=== PATIENT | male | born 1940 | race Caucasian/White ===

== ENCOUNTER 2019-05-23 13:15 | Inpatient (IN) | payer OTHER, MEDICAID ==
[~2019-05-23] VITALS: Ht 167.6 cm; Wt 56.2 kg
[2019-05-23 13:20] VITALS: BP_SYST 91
[2019-05-23] MEDS ORDERED: NACL 0.9% 1,000 ML IV ONE ×2 (14:00→15:15)
[2019-05-23] MEDS ORDERED: IPRATROPIUM/ALBUTEROL SULFATE 3 ML AMPUL.NEB (DUONEB) INH ONE (14:00)
[2019-05-23 14:38] LABS: BASOPHILS # (AUTO) 0.1 K/uL (0.0-0.2); BASOPHILS % (AUTO) 0.5 % (0.0-2.0); EOSINOPHILS % (AUTO) 0.1 % (0.0-4.0); HEMATOCRIT 36.1 % (36-54); LYMPHOCYTES # (AUTO) 0.8 K/uL (1.0-5.5); LYMPHOCYTES % (AUTO) 4.3 % (20.5-51.5); MEAN CORPUSCULAR HEMOGLOBIN 32 pg (27-31); MEAN CORPUSCULAR HGB CONC 33 % (32-36); MEAN CORPUSCULAR VOLUME 96 fL (79.0-98.0); MONOCYTES # (AUTO) 1.5 K/uL (0.0-1.0); NEUTROPHILS # (AUTO) 16.3 K/uL (1.8-7.7); NEUTROPHILS % (AUTO) 87.1 % (40.0-70.0); PLATELET COUNT (AUTO) 137 K/uL (130-430); RED BLOOD CELL COUNT(AUTO) 3.76 MIL/uL (4.2-6.2); RED CELL DISTRIBUTION WIDTH 15.6 % (9.0-15.0); WHITE BLOOD COUNT (AUTO) 18.8 K/uL (4.8-10.8)
[2019-05-23] MEDS ORDERED: LEVOFLOXACIN 500 MG/D5W 100 ML IV ONE (14:45)
[2019-05-23 14:49] LABS: CHLORIDE 108 mmol/L (98-107)
[2019-05-23 14:54] LABS: ANION GAP 8 (5-15); CALCIUM 8.1 mg/dL (8.4-11.0); CREATININE 1.12 mg/dL (0.55-1.30); GLUCOSE 142 mg/dL (70-99); SODIUM SERUM 139 mmol/L (136-145); UREA NITROGEN, BLOOD 45 mg/dL (8-21)
[2019-05-23 14:59] LABS: ALANINE AMINOTRANSFERASE 21 U/L (12-78); ALBUMIN 1.5 g/dL (3.4-4.8); ASPARTATE AMINOTRANSFERASE 53 U/L (10-37); TOTAL BILIRUBIN 0.5 mg/dL (0.0-1.0)
[2019-05-23 15:01] LABS: BILIRUBIN,URINE NEGATIVE (NEGATIVE); CLARITY/URINE TURBID (CLEAR); COLOR,URINE YELLOW (YELLOW); GLUCOSE,URINE NEGATIVE (NEGATIVE); KETONES,URINE NEGATIVE (NEGATIVE); LEUKOCYTE ESTERASE ,URINE 3+ (NEGATIVE); NITRITE, URINE NEGATIVE (NEGATIVE); PH,URINE 5.5 (5.0-8.0); PROTEIN URINE NEGATIVE (NEGATIVE)
[2019-05-23 15:02] LABS: BLOOD, URINE TRACE (NEGATIVE)
[2019-05-23 15:21] LABS: BACTERIA,URINE MANY /HPF (None Seen); WBC,URINE 50-80 /HPF (0-3)
[2019-05-23] MEDS ORDERED: PHEN100C4 PO (16:32)
[2019-05-23] MEDS ORDERED: HYDR-4272 PO (16:32)
[2019-05-23] MEDS ORDERED: SENN17.24 PO (16:32)
[2019-05-23] MEDS ORDERED: MOM PO (16:32)
[2019-05-23] MEDS ORDERED: FLEETMO RC (16:33)
[2019-05-23] MEDS ORDERED: ACET325C3 PO (16:38)
[2019-05-23] MEDS ORDERED: SPIR25TA6 PO (16:38)
[2019-05-23] MEDS ORDERED: TAMS-11 PO (16:38)
[2019-05-23] MEDS ORDERED: FURO-150 PO (16:38)
[2019-05-23] MEDS ORDERED: ASPI-1155 PO (16:38)
[2019-05-23] MEDS ORDERED: MEMA5TAB PO (16:44)
[2019-05-23] MEDS ORDERED: GABA-531 PO (16:44)
[2019-05-23] MEDS ORDERED: FINA5TAB3 PO (16:44)
[2019-05-23] MEDS ORDERED: MEGE40TA PO (16:44)
[2019-05-23] MEDS ORDERED: VALP250S4 PO (16:51)
[2019-05-23 17:15] VITALS: BP_SYST 135
[2019-05-23] MEDS ORDERED: MINERAL OIL 133 ML ENEMA RC PRN (17:30)
[2019-05-23] MEDS ORDERED: LORazepam 2 MG/ML VIAL IVP PRN (17:30)
[2019-05-23] MEDS ORDERED: ONDANSETRON HCL 4 MG/2 ML VIAL IVP PRN (17:30)
[2019-05-23] MEDS ORDERED: HYDROcodone/ACETAMIN 10-325 MG TAB PO PRN (17:30)
[2019-05-23] MEDS ORDERED: HYDROcodone/ACETAMIN 5-325 MG TAB (NORCO/ VICODIN) PO PRN (17:30)
[2019-05-23] MEDS: D5/0.45 NS 1,000 ML IV SCH (20:54)
[2019-05-23] MEDS: PHENYTOIN 100 MG CAPSULE PO SCH ×2 (20:55→21:00)
[2019-05-23] MEDS: NORMAL SALINE 5 ML DISP.SYRIN IVF SCH (20:55)
[2019-05-23] MEDS: SENNOSIDES 8.6 MG TABLET PO SCH ×2 (20:55→21:00)
[2019-05-23] MEDS ORDERED: VALPROATE SODIUM PO SCH (21:00)
[2019-05-23] MEDS ORDERED: MEGESTROL ACETATE 40 MG TABLET PO SCH (22:30)
[2019-05-23] MEDS ORDERED: VALPROIC ACID ORAL SYRUP 250 MG/5 ML UDC PO SCH (23:00)
[2019-05-23] MEDS ORDERED: VALPROIC ACID 250 MG CAPSULE (DEPAKENE) PO SCH (23:00)
[2019-05-24 01:14] VITALS: BP_SYST 96
[2019-05-24] MEDS: MEGESTROL ACETATE 40 MG TABLET PO SCH ×3 (05:37→18:08)
[2019-05-24] MEDS: D5/0.45 NS 1,000 ML IV SCH ×2 (05:41→16:40)
[2019-05-24] MEDS: NORMAL SALINE 5 ML DISP.SYRIN IVF SCH ×3 (05:41→23:22)
[2019-05-24 08:24] VITALS: BP_SYST 111
[2019-05-24] MEDS: PHENYTOIN 100 MG CAPSULE PO SCH ×2 (09:00→21:00)
[2019-05-24] MEDS: ACETAMINOPHEN 325 MG TABLET PO SCH (09:00)
[2019-05-24] MEDS: FUROSEMIDE 20 MG TABLET PO SCH (09:00)
[2019-05-24] MEDS: VALPROIC ACID ORAL SYRUP 250 MG/5 ML UDC PO SCH ×2 (09:00→21:00)
[2019-05-24] MEDS: GABAPENTIN 300 MG CAPSULE PO SCH (09:00)
[2019-05-24] MEDS: TAMSULOSIN HCL 0.4 MG CAP PO SCH (09:00)
[2019-05-24] MEDS ORDERED: VALPROIC ACID 250 MG CAPSULE (DEPAKENE) PO SCH (09:00)
[2019-05-24] MEDS: FINASTERIDE 5 MG TABLET (PROSCAR) PO SCH (09:00)
[2019-05-24] MEDS: MILK OF MAGNESIA 30 ML UDC PO SCH (09:00)
[2019-05-24] MEDS: SPIRONOLACTONE 25 MG TABLET (ALDACTONE) PO SCH (09:00)
[2019-05-24] MEDS: MEMANTINE HCL 5 MG TABLET PO SCH (09:00)
[2019-05-24] MEDS: ASPIRIN 81 MG TAB.CHEW PO SCH (09:00)
[2019-05-24 09:17] LABS: BASOPHILS # (AUTO) 0.1 K/uL (0.0-0.2); BASOPHILS % (AUTO) 0.4 % (0.0-2.0); EOSINOPHILS # (AUTO) 0.2 K/uL (0.0-0.4); EOSINOPHILS % (AUTO) 1.1 % (0.0-4.0); HEMATOCRIT 26.3 % (36-54); HEMOGLOBIN 8.9 g/dL (14.0-18.0); LYMPHOCYTES # (AUTO) 0.7 K/uL (1.0-5.5); LYMPHOCYTES % (AUTO) 3.9 % (20.5-51.5); MEAN CORPUSCULAR HEMOGLOBIN 33 pg (27-31); MEAN CORPUSCULAR HGB CONC 34 % (32-36); MEAN CORPUSCULAR VOLUME 97 fL (79.0-98.0); MONOCYTES # (AUTO) 1.2 K/uL (0.0-1.0); MONOCYTES % (AUTO) 6.9 % (1.7-9.3); NEUTROPHILS # (AUTO) 15.1 K/uL (1.8-7.7); NEUTROPHILS % (AUTO) 87.7 % (40.0-70.0); PLATELET COUNT (AUTO) 150 K/uL (130-430); RED BLOOD CELL COUNT(AUTO) 2.71 MIL/uL (4.2-6.2); RED CELL DISTRIBUTION WIDTH 15.6 % (9.0-15.0); WHITE BLOOD COUNT (AUTO) 17.3 K/uL (4.8-10.8)
[2019-05-24 09:26] LABS: ANION GAP 5 (5-15); CALCIUM 7.3 mg/dL (8.4-11.0); CHLORIDE 112 mmol/L (98-107); CREATININE 0.86 mg/dL (0.55-1.30); GLUCOSE 178 mg/dL (70-99); POTASSIUM 3.1 mmol/L (3.5-5.1); SODIUM SERUM 142 mmol/L (136-145); UREA NITROGEN, BLOOD 31 mg/dL (8-21)
[2019-05-24 13:08] VITALS: BP_SYST 138
[2019-05-24] MEDS ORDERED: BALSAM PERU/CASTOR OIL 60 GM OINT...G. TP ONE (16:45)
[2019-05-24] MEDS ORDERED: LEVOFLOXACIN 500 MG/D5W 100 ML IV SCH (17:00)
[2019-05-24 17:14] VITALS: BP_SYST 149
[2019-05-24 20:00] VITALS: BP_SYST 147
[2019-05-24] MEDS: SENNOSIDES 8.6 MG TABLET PO SCH (21:00)
[2019-05-24] MEDS: AZTREONAM 1 GM in NS 50 ML IV SCH (23:21)
[2019-05-25] MEDS: AZTREONAM 1 GM in NS 50 ML IV SCH ×3 (05:44→23:19)
[2019-05-25] MEDS: D5/0.45 NS 1,000 ML IV SCH ×2 (05:45→17:44)
[2019-05-25] MEDS: MEGESTROL ACETATE 40 MG TABLET PO SCH ×4 (05:45→17:44)
[2019-05-25] MEDS: NORMAL SALINE 5 ML DISP.SYRIN IVF SCH ×3 (05:50→23:25)
[2019-05-25 07:35] VITALS: BP_SYST 97
[2019-05-25 08:00] VITALS: BP_SYST 97
[2019-05-25 08:03] LABS: BASOPHILS # (AUTO) 0.1 K/uL (0.0-0.2); BASOPHILS % (AUTO) 0.3 % (0.0-2.0); EOSINOPHILS # (AUTO) 0.1 K/uL (0.0-0.4); EOSINOPHILS % (AUTO) 0.3 % (0.0-4.0); HEMATOCRIT 31.8 % (36-54); HEMOGLOBIN 10.6 g/dL (14.0-18.0); LYMPHOCYTES # (AUTO) 0.8 K/uL (1.0-5.5); LYMPHOCYTES % (AUTO) 4.7 % (20.5-51.5); MEAN CORPUSCULAR HEMOGLOBIN 32 pg (27-31); MEAN CORPUSCULAR HGB CONC 33 % (32-36); MEAN CORPUSCULAR VOLUME 97 fL (79.0-98.0); MONOCYTES # (AUTO) 1.3 K/uL (0.0-1.0); MONOCYTES % (AUTO) 7.3 % (1.7-9.3); NEUTROPHILS # (AUTO) 15.4 K/uL (1.8-7.7); NEUTROPHILS % (AUTO) 87.4 % (40.0-70.0); PLATELET COUNT (AUTO) 162 K/uL (130-430); RED BLOOD CELL COUNT(AUTO) 3.28 MIL/uL (4.2-6.2); RED CELL DISTRIBUTION WIDTH 15.6 % (9.0-15.0); WHITE BLOOD COUNT (AUTO) 17.6 K/uL (4.8-10.8)
[2019-05-25 08:16] LABS: ALANINE AMINOTRANSFERASE 19 U/L (12-78); ALBUMIN 1.2 g/dL (3.4-4.8); ANION GAP 7 (5-15); ASPARTATE AMINOTRANSFERASE 45 U/L (10-37); CALCIUM 7.8 mg/dL (8.4-11.0); CHLORIDE 111 mmol/L (98-107); GLUCOSE 139 mg/dL (70-99); POTASSIUM 3.1 mmol/L (3.5-5.1); SODIUM SERUM 141 mmol/L (136-145); TOTAL BILIRUBIN 0.4 mg/dL (0.0-1.0); UREA NITROGEN, BLOOD 23 mg/dL (8-21)
[2019-05-25 08:24] LABS: C-REACTIVE PROTEIN QUANT 36.1 mg/dL (0-0.5)
[2019-05-25] MEDS: ACETAMINOPHEN 325 MG TABLET PO SCH (09:00)
[2019-05-25] MEDS: GABAPENTIN 300 MG CAPSULE PO SCH (09:36)
[2019-05-25] MEDS: TAMSULOSIN HCL 0.4 MG CAP PO SCH (09:36)
[2019-05-25] MEDS: MEMANTINE HCL 5 MG TABLET PO SCH (09:37)
[2019-05-25] MEDS: ASPIRIN 81 MG TAB.CHEW PO SCH (09:37)
[2019-05-25] MEDS: FUROSEMIDE 20 MG TABLET PO SCH (09:37)
[2019-05-25] MEDS: PHENYTOIN 100 MG CAPSULE PO SCH ×2 (09:38→23:22)
[2019-05-25] MEDS: VALPROIC ACID ORAL SYRUP 250 MG/5 ML UDC PO SCH ×2 (09:38→21:00)
[2019-05-25] MEDS: FINASTERIDE 5 MG TABLET (PROSCAR) PO SCH (09:38)
[2019-05-25] MEDS: MILK OF MAGNESIA 30 ML UDC PO SCH (09:43)
[2019-05-25] MEDS: SPIRONOLACTONE 25 MG TABLET (ALDACTONE) PO SCH (09:44)
[2019-05-25] MEDS: BALSAM PERU/CASTOR OIL 60 GM OINT...G. TP SCH (09:45)
[2019-05-25 10:05] LABS: ERYTHROCYTE SEDIMENTATION RATE 102 MM/HR (0-15)
[2019-05-25 12:00] VITALS: BP_SYST 98
[2019-05-25] MEDS ORDERED: POTASSIUM CHLORIDE 20 MEQ TAB.PRT.SR PO ONE (14:15)
[2019-05-25] MEDS: SENNOSIDES 8.6 MG TABLET PO SCH (21:00)
[2019-05-25] MEDS: MUPIROCIN 2% TOPICAL OINTMENT 22 GM NS SCH (21:00)
[2019-05-26] MEDS: MEGESTROL ACETATE 40 MG TABLET PO SCH ×4 (00:30→17:03)
[2019-05-26 00:32] VITALS: BP_SYST 114
[2019-05-26] MEDS: D5/0.45 NS 1,000 ML IV SCH ×3 (05:42→17:03)
[2019-05-26] MEDS: AZTREONAM 1 GM in NS 50 ML IV SCH ×3 (05:43→22:26)
[2019-05-26] MEDS: NORMAL SALINE 5 ML DISP.SYRIN IVF SCH ×3 (05:43→22:26)
[2019-05-26 07:23] LABS: BASOPHILS % (AUTO) 0.4 % (0.0-2.0); EOSINOPHILS # (AUTO) 0.2 K/uL (0.0-0.4); EOSINOPHILS % (AUTO) 1.3 % (0.0-4.0); HEMATOCRIT 29.4 % (36-54); LYMPHOCYTES # (AUTO) 0.6 K/uL (1.0-5.5); LYMPHOCYTES % (AUTO) 5.7 % (20.5-51.5); MEAN CORPUSCULAR HEMOGLOBIN 33 pg (27-31); MEAN CORPUSCULAR HGB CONC 34 % (32-36); MEAN CORPUSCULAR VOLUME 97 fL (79.0-98.0); MONOCYTES # (AUTO) 1.2 K/uL (0.0-1.0); MONOCYTES % (AUTO) 10.4 % (1.7-9.3); NEUTROPHILS # (AUTO) 9.2 K/uL (1.8-7.7); NEUTROPHILS % (AUTO) 82.2 % (40.0-70.0); PLATELET COUNT (AUTO) 173 K/uL (130-430); RED BLOOD CELL COUNT(AUTO) 3.04 MIL/uL (4.2-6.2); RED CELL DISTRIBUTION WIDTH 15.6 % (9.0-15.0); WHITE BLOOD COUNT (AUTO) 11.2 K/uL (4.8-10.8)
[2019-05-26 07:36] LABS: ANION GAP 5 (5-15); CALCIUM 7.6 mg/dL (8.4-11.0); CHLORIDE 113 mmol/L (98-107); CREATININE 0.69 mg/dL (0.55-1.30); GLUCOSE 111 mg/dL (70-99); POTASSIUM 3.4 mmol/L (3.5-5.1); SODIUM SERUM 139 mmol/L (136-145); UREA NITROGEN, BLOOD 17 mg/dL (8-21)
[2019-05-26 08:00] VITALS: BP_SYST 106
[2019-05-26 08:22] LABS: C-REACTIVE PROTEIN QUANT 26.3 mg/dL (0-0.5)
[2019-05-26] MEDS: ACETAMINOPHEN 325 MG TABLET PO SCH ×2 (09:00→09:42)
[2019-05-26] MEDS: GABAPENTIN 300 MG CAPSULE PO SCH ×2 (09:00→09:44)
[2019-05-26] MEDS: MILK OF MAGNESIA 30 ML UDC PO SCH ×2 (09:00→09:59)
[2019-05-26] MEDS: FUROSEMIDE 20 MG TABLET PO SCH ×2 (09:00→09:46)
[2019-05-26] MEDS: PHENYTOIN 100 MG CAPSULE PO SCH ×3 (09:00→21:21)
[2019-05-26] MEDS: SPIRONOLACTONE 25 MG TABLET (ALDACTONE) PO SCH ×2 (09:00→09:46)
[2019-05-26] MEDS: MEMANTINE HCL 5 MG TABLET PO SCH ×2 (09:00→09:44)
[2019-05-26] MEDS: TAMSULOSIN HCL 0.4 MG CAP PO SCH ×2 (09:00→09:45)
[2019-05-26] MEDS: VALPROIC ACID ORAL SYRUP 250 MG/5 ML UDC PO SCH ×3 (09:00→21:20)
[2019-05-26] MEDS: FINASTERIDE 5 MG TABLET (PROSCAR) PO SCH ×2 (09:00→09:45)
[2019-05-26 09:44] LABS: ERYTHROCYTE SEDIMENTATION RATE 108 MM/HR (0-15)
[2019-05-26] MEDS: ASPIRIN 81 MG TAB.CHEW PO SCH ×2 (09:45→10:14)
[2019-05-26] MEDS: MUPIROCIN 2% TOPICAL OINTMENT 22 GM NS SCH ×2 (09:45→21:21)
[2019-05-26] MEDS: BALSAM PERU/CASTOR OIL 60 GM OINT...G. TP SCH (09:50)
[2019-05-26] MEDS ORDERED: POTASSIUM CHLORIDE 20 MEQ TAB.PRT.SR PO ONE (12:00)
[2019-05-26 12:03] VITALS: BP_SYST 157
[2019-05-26 17:14] VITALS: BP_SYST 155
[2019-05-26 20:00] VITALS: BP_SYST 138
[2019-05-26] MEDS: SENNOSIDES 8.6 MG TABLET PO SCH (21:21)
[2019-05-27] MEDS: MEGESTROL ACETATE 40 MG TABLET PO SCH ×3 (00:28→11:19)
[2019-05-27 00:30] VITALS: BP_SYST 95
[2019-05-27] MEDS: D5/0.45 NS 1,000 ML IV SCH ×2 (05:03→13:23)
[2019-05-27] MEDS: AZTREONAM 1 GM in NS 50 ML IV SCH ×2 (05:07→13:23)
[2019-05-27] MEDS: NORMAL SALINE 5 ML DISP.SYRIN IVF SCH ×2 (05:10→13:23)
[2019-05-27 07:12] LABS: BASOPHILS # (AUTO) 0.1 K/uL (0.0-0.2); BASOPHILS % (AUTO) 0.7 % (0.0-2.0); EOSINOPHILS # (AUTO) 0.2 K/uL (0.0-0.4); EOSINOPHILS % (AUTO) 1.8 % (0.0-4.0); HEMATOCRIT 28.4 % (36-54); HEMOGLOBIN 9.7 g/dL (14.0-18.0); LYMPHOCYTES # (AUTO) 0.6 K/uL (1.0-5.5); LYMPHOCYTES % (AUTO) 7.4 % (20.5-51.5); MEAN CORPUSCULAR HEMOGLOBIN 33 pg (27-31); MEAN CORPUSCULAR HGB CONC 34 % (32-36); MEAN CORPUSCULAR VOLUME 97 fL (79.0-98.0); MONOCYTES # (AUTO) 1.1 K/uL (0.0-1.0); MONOCYTES % (AUTO) 12.7 % (1.7-9.3); NEUTROPHILS # (AUTO) 6.5 K/uL (1.8-7.7); NEUTROPHILS % (AUTO) 77.4 % (40.0-70.0); PLATELET COUNT (AUTO) 192 K/uL (130-430); RED BLOOD CELL COUNT(AUTO) 2.93 MIL/uL (4.2-6.2); RED CELL DISTRIBUTION WIDTH 15.5 % (9.0-15.0); WHITE BLOOD COUNT (AUTO) 8.4 K/uL (4.8-10.8)
[2019-05-27 07:42] LABS: ANION GAP 5 (5-15); CALCIUM 7.3 mg/dL (8.4-11.0); CHLORIDE 111 mmol/L (98-107); CREATININE 0.58 mg/dL (0.55-1.30); GLUCOSE 122 mg/dL (70-99); POTASSIUM 3.9 mmol/L (3.5-5.1); SODIUM SERUM 137 mmol/L (136-145); UREA NITROGEN, BLOOD 14 mg/dL (8-21)
[2019-05-27 08:28] VITALS: BP_SYST 130
[2019-05-27 09:05] LABS: C-REACTIVE PROTEIN QUANT 19.9 mg/dL (0-0.5)
[2019-05-27 09:29] LABS: ERYTHROCYTE SEDIMENTATION RATE 95 MM/HR (0-15)
[2019-05-27] MEDS: MUPIROCIN 2% TOPICAL OINTMENT 22 GM NS SCH (09:46)
[2019-05-27] MEDS: MILK OF MAGNESIA 30 ML UDC PO SCH (09:46)
[2019-05-27] MEDS: ASPIRIN 81 MG TAB.CHEW PO SCH (09:47)
[2019-05-27] MEDS: VALPROIC ACID ORAL SYRUP 250 MG/5 ML UDC PO SCH (09:47)
[2019-05-27] MEDS: ACETAMINOPHEN 325 MG TABLET PO SCH (09:48)
[2019-05-27] MEDS: GABAPENTIN 300 MG CAPSULE PO SCH (09:50)
[2019-05-27] MEDS: PHENYTOIN 100 MG CAPSULE PO SCH (09:50)
[2019-05-27] MEDS: TAMSULOSIN HCL 0.4 MG CAP PO SCH (09:50)
[2019-05-27] MEDS: BALSAM PERU/CASTOR OIL 60 GM OINT...G. TP SCH (09:50)
[2019-05-27] MEDS: SPIRONOLACTONE 25 MG TABLET (ALDACTONE) PO SCH (09:51)
[2019-05-27] MEDS: MEMANTINE HCL 5 MG TABLET PO SCH (09:51)
[2019-05-27] MEDS: FINASTERIDE 5 MG TABLET (PROSCAR) PO SCH (09:51)
[2019-05-27] MEDS: FUROSEMIDE 20 MG TABLET PO SCH (09:51)
[2019-05-27] MEDS ORDERED: CIPR-211 PO (13:52)
[2019-05-27 14:39] VITALS: BP_SYST 134
[2019-05-27 17:04] VITALS: BP_SYST 134
[2019-05-27 18:01] VITALS: BP_SYST 132
== END 2019-05-27 17:35 | DRG 871 ==
LOC: SED 13:15 → SMU 16:06
PROVIDERS: ADMIT Preventive Medicine Preventive Medicine/Occupational Environmental Medicine; ATTEND Preventive Medicine Preventive Medicine/Occupational Environmental Medicine
DX: A41.9 Sepsis, unspecified organism (principal); J69.0 Pneumonitis due to inhalation of food and vomit; E43 Unspecified severe protein-calorie malnutrition; N39.0 Urinary tract infection, site not specified; I69.351 Hemiplegia and hemiparesis following cerebral infarction affecting right dominant side; D64.9 Anemia, unspecified; E83.51 Hypocalcemia; G30.9 Alzheimer's disease, unspecified; F20.9 Schizophrenia, unspecified; F02.80 Dementia in other diseases classified elsewhere, unspecified severity, without behavioral disturbance, psychotic disturbance, mood disturbance, and anxiety; J44.9 Chronic obstructive pulmonary disease, unspecified; G62.9 Polyneuropathy, unspecified; E86.0 Dehydration; G40.909 Epilepsy, unspecified, not intractable, without status epilepticus; R73.9 Hyperglycemia, unspecified; E88.09 Other disorders of plasma-protein metabolism, not elsewhere classified; E87.6 Hypokalemia; I10 Essential (primary) hypertension; N40.0 Benign prostatic hyperplasia without lower urinary tract symptoms; B96.20 Unspecified Escherichia coli [E. coli] as the cause of diseases classified elsewhere; Z68.20 Body mass index [BMI] 20.0-20.9, adult; Z88.1 Allergy status to other antibiotic agents; Z22.322 Carrier or suspected carrier of Methicillin resistant Staphylococcus aureus; Z79.899 Other long term (current) drug therapy
CPT/HCPCS: 36415; 71045; 80048; 80053; 81000-TC; 83605; 85025; 85651-TC; 86140; 86710; 87040-TC; 87081; 87086; 87186-TC; 92610-GN; 93005; 94640; 96361; 96365; 99285; J1956; J3490; J7620